=== PATIENT | male | born 1940 | race African-American/Black ===

== ENCOUNTER 2021-03-18 13:52 | Inpatient (IN) ==
[2021-03-18] MEDS ORDERED: SODIUM CHLORIDE 0.9% 1,000 ML IV STA (15:31)
[2021-03-18 15:57] LABS: Bilirubin,Urine Negative (Negative); Blood, Urine Negative (Negative); Glucose,Urine (UA) Negative (Negative); Ketones,Urine Negative (Negative); Mucus,Urine Occasional /LPF (Occasional); Nitrite,Urine Negative (Negative); Protein,Urine Negative; RBC,Urine 2 /HPF (0-4); Urine Appearance CLEAR (Clear); Urine Color Yellow (Yellow); Urine Specific Gravity 1.016 (1.001-1.035); Urine Urobilinogen < 2.0 EU/DL (0.2-1.0)
[2021-03-18 16:00] LABS: Barbiturates Screen,Urine Negative (Negative); Benzodiazepines Screen,Urine Negative (Negative); Cannabinoid Screen,Urine Negative (Negative); Opiate Screen,Urine Negative (Negative); Phencyclidine Screen,Urine Negative (Negative)
[2021-03-18] MEDS ORDERED: DEXTROSE 50% 25 GM/50 ML VIAL IV PRN (17:11)
[2021-03-18] MEDS ORDERED: hydrALAZINE 20 MG/1 ML VIAL IV PRN (17:11)
[2021-03-18] MEDS ORDERED: ACETAMINOPHEN 325 MG TABLET PO PRN (17:11)
[2021-03-18] MEDS ORDERED: BISACODYL 5 MG TABLET PO PRN (17:11)
[2021-03-18] MEDS ORDERED: DOCUSATE SODIUM 100 MG CAPSULE PO PRN (17:11)
[2021-03-18] MEDS ORDERED: ONDANSETRON 4 MG/2 ML VIAL IV PRN (17:11)
[2021-03-18] MEDS ORDERED: GLUCAGON 1 MG VIAL IM PRN (17:11)
[2021-03-18 17:29] LABS: Alanine Aminotransferase 20 U/L (16-61); Albumin 3.6 G/DL (3.4-5.0); Alkaline Phosphatase 133 U/L (45-117); Aspartate Amino Transferase 19 U/L (0-37); Blood Urea Nitrogen 22 MG/DL (7-18); Calcium 9.3 MG/DL (8.5-10.1); Carbon Dioxide 18 MMOL/L (21-32); Estimated Glom Filtration Rate 66 ML/MIN; Glucose 71 MG/DL (74-106); Osmolality,Calculated 273.8 MOS/KG (273-304); Potassium 4.8 MMOL/L (3.5-5.1); Sodium 137 MMOL/L (136-145); Total Protein 7.7 G/DL (6.4-8.2)
[2021-03-18 17:40] LABS: Basophils # 0.1 10*3/uL (0.0-0.2); Basophils % 0.7 % (0.0-0.8); Eosinophils # 0.2 10*3/uL (0.0-0.87); Eosinophils % 2.9 % (0.00-10.9); Hematocrit 36.8 VOL% (42.0-52.0); Hemoglobin 11.4 GM/DL (14.0-18.0); Immature Granulocytes % 0.5 %; Immature Granulocytes Absolute 0.04 #; Lymphocytes # 2.5 10*3/uL (1.4-4.0); Lymphocytes % 30.6 % (21.2-54.2); Mean Corpuscular Volume 82.9 FL (87-102); Mean Platelet Volume 11.4 FL (9.6-12.0); Monocytes % 7.1 % (1.7-12.7); Neutrophils % 58.2 % (38.7-73.9); Platelet Count 376 T/CUMM (130-400); Red Blood Count 4.44 MC/CUMM (3.8-5.5); Red Cell Distribution Width 17.5 % (9.3-17.3); White Blood Count 8.2 T/CUMM (4-12)
[2021-03-18] MEDS ORDERED: ASPIRIN EC 325 MG TABLET PO STA (18:07)
[2021-03-18] MEDS: SODIUM CHLORIDE 0.9% 1,000 ML IV SCH (18:08)
[2021-03-18 18:20] LABS: Eosinophils 2 % (0-10); Lymphocytes 36 % (20-55); Segmented Neutrophils 57 % (50-85); Total Cells Counted 100
[2021-03-18 18:22] LABS: Hypochromasia 1+; Microcytosis 1+; Ovalocytes Few
[2021-03-18 18:23] LABS: Platelet Estimate Increased
[2021-03-18 19:40] LABS: PT Patient Result 11.4 SECS (10.5-12.0)
[2021-03-18] MEDS ORDERED: AZITHROMYCIN INJ 500 MG in SODIUM CHLORIDE 0.9% 250 ML IV SCH (20:00)
[2021-03-18] MEDS: ATORVASTATIN 40 MG TABLET PO SCH (20:25)
[2021-03-18] MEDS: levETIRAcetam 250 MG TABLET PO SCH (20:25)
[2021-03-18] MEDS: ASCORBIC ACID 500 MG TABLET PO SCH (20:25)
[2021-03-18] MEDS ORDERED: ENOXAPARIN 40 MG/0.4 ML SYRINGE SUBCUT SCH (21:00)
[2021-03-19] MEDS: SODIUM CHLORIDE 0.9% 1,000 ML IV SCH ×2 (06:30→16:41)
[2021-03-19] MEDS: LEVOTHYROXINE 50 MCG TABLET PO SCH (06:33)
[2021-03-19 06:49] LABS: Albumin 2.9 G/DL (3.4-5.0); Bilirubin,Total 1.4 MG/DL (0.20-1.00); Calcium 8.4 MG/DL (8.5-10.1); Osmolality,Calculated 283.1 MOS/KG (273-304); Potassium 4.2 MMOL/L (3.5-5.1); Total Protein 6.1 G/DL (6.4-8.2)
[2021-03-19 06:53] LABS: Risk Ratio 3.85; VLDL Cholesterol 12.2 MG/DL
[2021-03-19 06:56] LABS: Ferritin 307.3 ng/ml (26-388)
[2021-03-19] MEDS: levETIRAcetam 250 MG TABLET PO SCH ×2 (08:19→20:21)
[2021-03-19] MEDS: ZINC GLUCONATE 50 MG TABLET PO SCH (08:19)
[2021-03-19] MEDS: PANTOPRAZOLE 40 MG TABLET PO SCH (08:19)
[2021-03-19] MEDS: amLODIPine 10 MG TABLET PO SCH (08:19)
[2021-03-19] MEDS: lisinopriL 10 MG TABLET PO SCH (08:19)
[2021-03-19] MEDS: CHOLECALCIFEROL 1,000 UNIT TABLET PO SCH (08:19)
[2021-03-19] MEDS: ASCORBIC ACID 500 MG TABLET PO SCH ×2 (08:19→20:21)
[2021-03-19] MEDS: ASPIRIN EC 81 MG TABLET PO SCH (08:22)
[2021-03-19] MEDS ORDERED: DEXAMETHASONE 4 MG/1 ML VIAL IV SCH (09:00)
[2021-03-19] MEDS ORDERED: RIVAROXABAN 10 MG TABLET PO SCH (09:00)
[2021-03-19] MEDS ORDERED: ASPIRIN EC 325 MG TABLET PO SCH (09:00)
[2021-03-19] MEDS ORDERED: methylPREDNISolone SOD SUC 125 MG/2 ML VIAL IV PRN (11:30)
[2021-03-19] MEDS ORDERED: MECLIZINE 25 MG TABLET PO PRN (11:30)
[2021-03-19] MEDS ORDERED: diphenhydrAMINE 50 MG/1 ML VIAL IV PRN ×2 (11:30)
[2021-03-19] MEDS ORDERED: ONDANSETRON 4 MG/2 ML VIAL IV PRN (11:30)
[2021-03-19] MEDS ORDERED: SODIUM CHLORIDE 0.9% 200 ML IV SCH (11:30)
[2021-03-19] MEDS ORDERED: ACETAMINOPHEN 325 MG TABLET PO PRN (11:30)
[2021-03-19] MEDS ORDERED: DEXAMETHASONE 4 MG TABLET PO ONE (11:30)
[2021-03-19] MEDS ORDERED: SODIUM CHLORIDE 0.9% 1,000 ML IV SCH (11:30)
[2021-03-19] MEDS ORDERED: [UNRECOGNIZED DRUG - OTHER] IV ONE (14:00)
[2021-03-19] MEDS ORDERED: ZIPRASIDONE 20 MG/1 ML VIAL IM ONE (15:53)
[2021-03-19] MEDS ORDERED: ZIPRASIDONE 20 MG/1 ML VIAL IM PRN (16:02)
[2021-03-19] MEDS: ATORVASTATIN 40 MG TABLET PO SCH (20:22)
[2021-03-19] MEDS: APIXABAN 2.5 MG TABLET PO SCH (20:22)
[2021-03-20] MEDS ORDERED: chlordiazePOXIDE 10 MG CAPSULE PO PRN (01:47)
[2021-03-20] MEDS: SODIUM CHLORIDE 0.9% 1,000 ML IV SCH ×3 (01:52→23:19)
[2021-03-20] MEDS: LORazepam 2 MG/1 ML VIAL IV PRN ×5 (03:52→23:19)
[2021-03-20 05:35] LABS: Basophils % 0.2 % (0.0-0.8); Eosinophils % 0.1 % (0.00-10.9); Hematocrit 40.4 VOL% (42.0-52.0); Hemoglobin 12.4 GM/DL (14.0-18.0); Immature Granulocytes % 0.5 %; Immature Granulocytes Absolute 0.06 #; Lymphocytes # 1.4 10*3/uL (1.4-4.0); Mean Corpuscular HGB Conc 30.7 GM/DL (32-36); Mean Corpuscular Volume 83.8 FL (87-102); Mean Platelet Volume 11.6 FL (9.6-12.0); Monocytes % 6.6 % (1.7-12.7); Neutrophils % 79.6 % (38.7-73.9); Platelet Count 359 T/CUMM (130-400); Red Blood Count 4.82 MC/CUMM (3.8-5.5); Red Cell Distribution Width 17.1 % (9.3-17.3)
[2021-03-20 05:42] LABS: White Blood Count 10.9 T/CUMM (4-12)
[2021-03-20 05:45] LABS: Calcium 8.9 MG/DL (8.5-10.1); Osmolality,Calculated 280.3 MOS/KG (273-304)
[2021-03-20] MEDS: LEVOTHYROXINE 50 MCG TABLET PO SCH ×2 (05:53→06:04)
[2021-03-20 05:56] LABS: Hypochromasia 1+; Microcytosis 1+; Ovalocytes Slight; Platelet Estimate Normal
[2021-03-20] MEDS: levETIRAcetam 250 MG TABLET PO SCH ×2 (08:57→23:20)
[2021-03-20] MEDS: ZINC GLUCONATE 50 MG TABLET PO SCH (08:58)
[2021-03-20] MEDS: ASPIRIN EC 81 MG TABLET PO SCH (08:58)
[2021-03-20] MEDS: CHOLECALCIFEROL 1,000 UNIT TABLET PO SCH (08:58)
[2021-03-20] MEDS: APIXABAN 2.5 MG TABLET PO SCH ×2 (08:58→23:20)
[2021-03-20] MEDS: ASCORBIC ACID 500 MG TABLET PO SCH ×2 (08:58→23:20)
[2021-03-20] MEDS: PANTOPRAZOLE 40 MG TABLET PO SCH (08:58)
[2021-03-20] MEDS: amLODIPine 10 MG TABLET PO SCH (08:58)
[2021-03-20] MEDS: lisinopriL 10 MG TABLET PO SCH (08:58)
[2021-03-20] MEDS ORDERED: OLANZapine 10 MG VIAL IM PRN ×2 (10:10→10:30)
[2021-03-20] MEDS ORDERED: LORazepam 2 MG/1 ML VIAL ONE (18:12)
[2021-03-20] MEDS ORDERED: LORazepam 2 MG/1 ML VIAL IV ONE (19:40)
[2021-03-20 19:54] LABS: ABG Base Excess -4.4 MMOL/L (-2.5-2.5); ABG HCO3 20.8 MMOL/L (20-26); ABG Oxygen Saturation 99.5 % (95-100); ABG PCO2 30.3 MM HG (35-48); ABG PH 7.409 (7.35-7.45); ABG TCO2 16.7 MMOL/L (23-27)
[2021-03-20] MEDS ORDERED: HALOPERIDOL 5 MG/ML AMP IM ONE (20:14)
[2021-03-20] MEDS: ATROPINE 1 % OPH SOLN 5 ML BOTTLE SL PRN (20:41)
[2021-03-20] MEDS: THIAMINE INJ 100 MG, FOLIC ACID INJ 1 MG, MULTIVITAMIN INJ 10 ML in SODIUM CHLORIDE 0.9... IV SCH (20:42)
[2021-03-20] MEDS: ATORVASTATIN 40 MG TABLET PO SCH (23:20)
[2021-03-21] MEDS: LEVOTHYROXINE 50 MCG TABLET PO SCH (05:59)
[2021-03-21] MEDS: LORazepam 2 MG/1 ML VIAL IV PRN ×4 (06:28→21:55)
[2021-03-21] MEDS: SODIUM CHLORIDE 0.9% 1,000 ML IV SCH ×2 (06:47→19:42)
[2021-03-21] MEDS: ASPIRIN EC 81 MG TABLET PO SCH (10:13)
[2021-03-21] MEDS: APIXABAN 2.5 MG TABLET PO SCH ×2 (10:13→20:35)
[2021-03-21] MEDS: amLODIPine 10 MG TABLET PO SCH (10:13)
[2021-03-21] MEDS: levETIRAcetam 250 MG TABLET PO SCH ×2 (10:13→20:35)
[2021-03-21] MEDS: ZINC GLUCONATE 50 MG TABLET PO SCH (10:14)
[2021-03-21] MEDS: ASCORBIC ACID 500 MG TABLET PO SCH ×2 (10:14→20:35)
[2021-03-21] MEDS: PANTOPRAZOLE 40 MG TABLET PO SCH (10:14)
[2021-03-21] MEDS: lisinopriL 10 MG TABLET PO SCH (10:14)
[2021-03-21] MEDS: CHOLECALCIFEROL 1,000 UNIT TABLET PO SCH (10:14)
[2021-03-21 13:26] LABS: Basophils # 0.1 10*3/uL (0.0-0.2); Basophils % 0.4 % (0.0-0.8); Eosinophils # 0.1 10*3/uL (0.0-0.87); Eosinophils % 0.7 % (0.00-10.9); Hematocrit 47.6 VOL% (42.0-52.0); Hemoglobin 14.6 GM/DL (14.0-18.0); Immature Granulocytes % 0.4 %; Immature Granulocytes Absolute 0.06 #; Lymphocytes # 1.4 10*3/uL (1.4-4.0); Mean Corpuscular HGB Conc 30.7 GM/DL (32-36); Mean Platelet Volume 11.4 FL (9.6-12.0); Neutrophils % 81.5 % (38.7-73.9); Platelet Count 220 T/CUMM (130-400); Red Blood Count 5.67 MC/CUMM (3.8-5.5); Red Cell Distribution Width 17.7 % (9.3-17.3); White Blood Count 14.1 T/CUMM (4-12)
[2021-03-21 13:37] LABS: Calcium 9.2 MG/DL (8.5-10.1); Osmolality,Calculated 265.2 MOS/KG (273-304); Potassium 4.8 MMOL/L (3.5-5.1)
[2021-03-21] MEDS: ATROPINE 1 % OPH SOLN 5 ML BOTTLE SL PRN (14:31)
[2021-03-21] MEDS: THIAMINE INJ 100 MG, FOLIC ACID INJ 1 MG, MULTIVITAMIN INJ 10 ML in SODIUM CHLORIDE 0.9... IV SCH (20:34)
[2021-03-21] MEDS: ATORVASTATIN 40 MG TABLET PO SCH (20:35)
[2021-03-22] MEDS: LORazepam 2 MG/1 ML VIAL IV PRN ×2 (03:52→21:25)
[2021-03-22] MEDS: SODIUM CHLORIDE 0.9% 1,000 ML IV SCH ×2 (04:00→18:19)
[2021-03-22] MEDS: LEVOTHYROXINE 50 MCG TABLET PO SCH (05:50)
[2021-03-22 06:36] LABS: Calcium 8.5 MG/DL (8.5-10.1); Osmolality,Calculated 276.4 MOS/KG (273-304)
[2021-03-22 07:42] LABS: Basophils # 0.1 10*3/uL (0.0-0.2); Basophils % 0.5 % (0.0-0.8); Eosinophils # 0.2 10*3/uL (0.0-0.87); Eosinophils % 1.3 % (0.00-10.9); Hematocrit 46.6 VOL% (42.0-52.0); Hemoglobin 14.2 GM/DL (14.0-18.0); Immature Granulocytes % 0.5 %; Immature Granulocytes Absolute 0.07 #; Lymphocytes % 15.8 % (21.2-54.2); Mean Corpuscular HGB Conc 30.5 GM/DL (32-36); Mean Corpuscular Volume 85.7 FL (87-102); Mean Platelet Volume 11.4 FL (9.6-12.0); Monocytes % 9.4 % (1.7-12.7); Neutrophils % 72.5 % (38.7-73.9); Platelet Count 190 T/CUMM (130-400); Red Blood Count 5.44 MC/CUMM (3.8-5.5); Red Cell Distribution Width 17.8 % (9.3-17.3); White Blood Count 12.8 T/CUMM (4-12)
[2021-03-22 07:48] LABS: Platelet Estimate Adequate
[2021-03-22 07:49] LABS: Hypochromasia 1+; Microcytosis 1+
[2021-03-22] MEDS: APIXABAN 2.5 MG TABLET PO SCH ×2 (08:26→20:20)
[2021-03-22] MEDS: ASPIRIN EC 81 MG TABLET PO SCH (08:26)
[2021-03-22] MEDS: ASCORBIC ACID 500 MG TABLET PO SCH ×2 (08:27→20:20)
[2021-03-22] MEDS: ZINC GLUCONATE 50 MG TABLET PO SCH (08:27)
[2021-03-22] MEDS: levETIRAcetam 250 MG TABLET PO SCH (08:27)
[2021-03-22] MEDS: PANTOPRAZOLE 40 MG TABLET PO SCH (08:27)
[2021-03-22] MEDS: CHOLECALCIFEROL 1,000 UNIT TABLET PO SCH (08:27)
[2021-03-22] MEDS: lisinopriL 10 MG TABLET PO SCH (08:27)
[2021-03-22] MEDS: amLODIPine 10 MG TABLET PO SCH (08:27)
[2021-03-22] MEDS: NICOTINE 21 MG/24 HR PATCH TRANSDERM PRN (18:19)
[2021-03-22] MEDS: ATORVASTATIN 40 MG TABLET PO SCH (20:20)
[2021-03-22] MEDS: THIAMINE INJ 100 MG, FOLIC ACID INJ 1 MG, MULTIVITAMIN INJ 10 ML in SODIUM CHLORIDE 0.9... IV SCH (20:20)
[2021-03-23 05:59] LABS: Basophils # 0.1 10*3/uL (0.0-0.2); Basophils % 0.5 % (0.0-0.8); Eosinophils # 0.2 10*3/uL (0.0-0.87); Eosinophils % 1.7 % (0.00-10.9); Hemoglobin 13.5 GM/DL (14.0-18.0); Immature Granulocytes % 0.5 %; Immature Granulocytes Absolute 0.06 #; Lymphocytes # 1.9 10*3/uL (1.4-4.0); Lymphocytes % 15.2 % (21.2-54.2); Mean Corpuscular HGB Conc 32.1 GM/DL (32-36); Mean Corpuscular Volume 81.6 FL (87-102); Mean Platelet Volume 11.2 FL (9.6-12.0); Monocytes % 9.1 % (1.7-12.7); Platelet Count 275 T/CUMM (130-400); Red Blood Count 5.15 MC/CUMM (3.8-5.5); Red Cell Distribution Width 16.9 % (9.3-17.3); White Blood Count 12.2 T/CUMM (4-12)
[2021-03-23 06:17] LABS: Calcium 8.5 MG/DL (8.5-10.1); Osmolality,Calculated 276.4 MOS/KG (273-304); Potassium 3.8 MMOL/L (3.5-5.1)
[2021-03-23] MEDS: SODIUM CHLORIDE 0.9% 1,000 ML IV SCH ×2 (06:27→18:52)
[2021-03-23] MEDS: LEVOTHYROXINE 50 MCG TABLET PO SCH (06:32)
[2021-03-23] MEDS: ASCORBIC ACID 500 MG TABLET PO SCH ×2 (08:31→20:05)
[2021-03-23] MEDS: CHOLECALCIFEROL 1,000 UNIT TABLET PO SCH (08:31)
[2021-03-23] MEDS: amLODIPine 10 MG TABLET PO SCH (08:31)
[2021-03-23] MEDS: ZINC GLUCONATE 50 MG TABLET PO SCH (08:31)
[2021-03-23] MEDS: ASPIRIN EC 81 MG TABLET PO SCH (08:31)
[2021-03-23] MEDS: PANTOPRAZOLE 40 MG TABLET PO SCH (08:32)
[2021-03-23] MEDS: APIXABAN 2.5 MG TABLET PO SCH ×2 (08:32→20:05)
[2021-03-23] MEDS: lisinopriL 10 MG TABLET PO SCH (08:32)
[2021-03-23] MEDS: ATORVASTATIN 40 MG TABLET PO SCH (20:05)
[2021-03-23] MEDS: LORazepam 2 MG/1 ML VIAL IV PRN ×2 (20:17→22:23)
[2021-03-23] MEDS: THIAMINE INJ 100 MG, FOLIC ACID INJ 1 MG, MULTIVITAMIN INJ 10 ML in SODIUM CHLORIDE 0.9... IV SCH (21:13)
[2021-03-24] MEDS: LORazepam 2 MG/1 ML VIAL IV PRN ×2 (05:03→12:18)
[2021-03-24] MEDS: LEVOTHYROXINE 50 MCG TABLET PO SCH (05:54)
[2021-03-24] MEDS: SODIUM CHLORIDE 0.9% 1,000 ML IV SCH (05:57)
[2021-03-24] MEDS: ZINC GLUCONATE 50 MG TABLET PO SCH ×2 (08:02→08:33)
[2021-03-24] MEDS: PANTOPRAZOLE 40 MG TABLET PO SCH ×2 (08:02→08:33)
[2021-03-24] MEDS: amLODIPine 10 MG TABLET PO SCH ×2 (08:02→08:33)
[2021-03-24] MEDS: APIXABAN 2.5 MG TABLET PO SCH ×3 (08:02→21:51)
[2021-03-24] MEDS: CHOLECALCIFEROL 1,000 UNIT TABLET PO SCH ×2 (08:02→08:33)
[2021-03-24] MEDS: lisinopriL 10 MG TABLET PO SCH ×2 (08:02→08:33)
[2021-03-24] MEDS: ASCORBIC ACID 500 MG TABLET PO SCH ×3 (08:02→21:52)
[2021-03-24] MEDS: ASPIRIN EC 81 MG TABLET PO SCH ×2 (08:02→08:33)
[2021-03-24 08:13] LABS: Basophils # 0.1 10*3/uL (0.0-0.2); Basophils % 0.3 % (0.0-0.8); Eosinophils # 0.2 10*3/uL (0.0-0.87); Hematocrit 38.9 VOL% (42.0-52.0); Immature Granulocytes % 0.6 %; Immature Granulocytes Absolute 0.09 #; Lymphocytes % 12.7 % (21.2-54.2); Mean Corpuscular HGB Conc 30.8 GM/DL (32-36); Mean Corpuscular Volume 82.6 FL (87-102); Mean Platelet Volume 11.9 FL (9.6-12.0); Monocytes % 10.5 % (1.7-12.7); Neutrophils % 74.9 % (38.7-73.9); Platelet Count 319 T/CUMM (130-400); Red Blood Count 4.71 MC/CUMM (3.8-5.5); Red Cell Distribution Width 16.7 % (9.3-17.3); White Blood Count 15.7 T/CUMM (4-12)
[2021-03-24 08:26] LABS: Calcium 8.6 MG/DL (8.5-10.1); Osmolality,Calculated 274.5 MOS/KG (273-304); Potassium 3.6 MMOL/L (3.5-5.1)
[2021-03-24] MEDS ORDERED: LORazepam 2 MG/1 ML VIAL ONE (12:14)
[2021-03-24] MEDS: DEXTROSE 5% NACL 0.9% 1,000 ML IV SCH (15:04)
[2021-03-24] MEDS: THIAMINE INJ 100 MG, FOLIC ACID INJ 1 MG, MULTIVITAMIN INJ 10 ML in SODIUM CHLORIDE 0.9... IV SCH (21:15)
[2021-03-24] MEDS: ATORVASTATIN 40 MG TABLET PO SCH (21:52)
[2021-03-25 05:03] LABS: Basophils # 0.1 10*3/uL (0.0-0.2); Basophils % 0.3 % (0.0-0.8); Eosinophils # 0.1 10*3/uL (0.0-0.87); Eosinophils % 0.5 % (0.00-10.9); Hematocrit 35.4 VOL% (42.0-52.0); Hemoglobin 11.6 GM/DL (14.0-18.0); Immature Granulocytes % 0.6 %; Immature Granulocytes Absolute 0.09 #; Lymphocytes # 1.2 10*3/uL (1.4-4.0); Lymphocytes % 8.1 % (21.2-54.2); Mean Corpuscular HGB Conc 32.8 GM/DL (32-36); Mean Corpuscular Volume 79.6 FL (87-102); Mean Platelet Volume 11.6 FL (9.6-12.0); Monocytes % 12.1 % (1.7-12.7); Neutrophils % 78.4 % (38.7-73.9); Platelet Count 322 T/CUMM (130-400); Red Blood Count 4.45 MC/CUMM (3.8-5.5); Red Cell Distribution Width 16.3 % (9.3-17.3); White Blood Count 15.1 T/CUMM (4-12)
[2021-03-25 05:24] LABS: Hypochromasia Slight; Microcytosis Slight; Platelet Estimate Adequate
[2021-03-25] MEDS: LEVOTHYROXINE 50 MCG TABLET PO SCH (05:49)
[2021-03-25] MEDS: DEXTROSE 5% NACL 0.9% 1,000 ML IV SCH ×2 (05:50→16:48)
[2021-03-25] MEDS: APIXABAN 2.5 MG TABLET PO SCH ×2 (10:02→20:49)
[2021-03-25] MEDS: ASPIRIN EC 81 MG TABLET PO SCH (10:02)
[2021-03-25] MEDS: CHOLECALCIFEROL 1,000 UNIT TABLET PO SCH (10:03)
[2021-03-25] MEDS: amLODIPine 10 MG TABLET PO SCH (10:03)
[2021-03-25] MEDS: lisinopriL 10 MG TABLET PO SCH (10:03)
[2021-03-25] MEDS: ZINC GLUCONATE 50 MG TABLET PO SCH (10:03)
[2021-03-25] MEDS: PANTOPRAZOLE 40 MG TABLET PO SCH (10:03)
[2021-03-25] MEDS: ASCORBIC ACID 500 MG TABLET PO SCH ×2 (10:03→20:48)
[2021-03-25] MEDS: RIVASTIGMINE 4.6 MG/24 HR PATCH TRANSDERM SCH (10:13)
[2021-03-25] MEDS: HALOPERIDOL 5 MG/ML AMP IM PRN (13:49)
[2021-03-25] MEDS: ATORVASTATIN 40 MG TABLET PO SCH (20:48)
[2021-03-25] MEDS: THIAMINE INJ 100 MG, FOLIC ACID INJ 1 MG, MULTIVITAMIN INJ 10 ML in SODIUM CHLORIDE 0.9... IV SCH (20:49)
[2021-03-26] MEDS: HALOPERIDOL 5 MG/ML AMP IM PRN ×2 (00:19→14:55)
[2021-03-26] MEDS: LEVOTHYROXINE 50 MCG TABLET PO SCH (05:41)
[2021-03-26] MEDS: DEXTROSE 5% NACL 0.9% 1,000 ML IV SCH ×2 (06:11→15:36)
[2021-03-26] MEDS: amLODIPine 10 MG TABLET PO SCH (08:33)
[2021-03-26] MEDS: APIXABAN 2.5 MG TABLET PO SCH ×2 (08:33→21:22)
[2021-03-26] MEDS: ASPIRIN EC 81 MG TABLET PO SCH (08:33)
[2021-03-26] MEDS: lisinopriL 10 MG TABLET PO SCH ×2 (08:33→21:23)
[2021-03-26] MEDS: RIVASTIGMINE 4.6 MG/24 HR PATCH TRANSDERM SCH (08:35)
[2021-03-26] MEDS: PANTOPRAZOLE 40 MG TABLET PO SCH (08:35)
[2021-03-26] MEDS: ZINC GLUCONATE 50 MG TABLET PO SCH (08:35)
[2021-03-26] MEDS: ASCORBIC ACID 500 MG TABLET PO SCH ×2 (08:35→21:22)
[2021-03-26] MEDS: CHOLECALCIFEROL 1,000 UNIT TABLET PO SCH (08:35)
[2021-03-26] MEDS ORDERED: QUEtiapine 25 MG TABLET PO SCH (21:00)
[2021-03-26] MEDS: QUEtiapine 25 MG TABLET PO SCH (21:24)
[2021-03-26] MEDS: ATORVASTATIN 40 MG TABLET PO SCH (21:24)
[2021-03-26] MEDS: MEMANTINE 5 MG TABLET PO SCH (21:24)
[2021-03-26] MEDS: THIAMINE INJ 100 MG, FOLIC ACID INJ 1 MG, MULTIVITAMIN INJ 10 ML in SODIUM CHLORIDE 0.9... IV SCH (21:25)
[2021-03-27 06:30] LABS: Basophils % 0.3 % (0.0-0.8); Eosinophils # 0.1 10*3/uL (0.0-0.87); Hematocrit 35.9 VOL% (42.0-52.0); Hemoglobin 11.5 GM/DL (14.0-18.0); Immature Granulocytes % 0.8 %; Immature Granulocytes Absolute 0.09 #; Lymphocytes # 1.4 10*3/uL (1.4-4.0); Lymphocytes % 11.7 % (21.2-54.2); Monocytes % 14.2 % (1.7-12.7); Platelet Count 334 T/CUMM (130-400); Red Blood Count 4.49 MC/CUMM (3.8-5.5); Red Cell Distribution Width 16.2 % (9.3-17.3); White Blood Count 11.7 T/CUMM (4-12)
[2021-03-27] MEDS: LEVOTHYROXINE 50 MCG TABLET PO SCH (06:39)
[2021-03-27 06:50] LABS: Calcium 8.3 MG/DL (8.5-10.1); Osmolality,Calculated 275.5 MOS/KG (273-304)
[2021-03-27] MEDS: PANTOPRAZOLE 40 MG TABLET PO SCH (09:00)
[2021-03-27] MEDS: lisinopriL 10 MG TABLET PO SCH ×2 (09:00→20:17)
[2021-03-27] MEDS: MEMANTINE 5 MG TABLET PO SCH ×2 (09:00→20:17)
[2021-03-27] MEDS: CHOLECALCIFEROL 1,000 UNIT TABLET PO SCH (09:00)
[2021-03-27] MEDS: RIVASTIGMINE 4.6 MG/24 HR PATCH TRANSDERM SCH (09:00)
[2021-03-27] MEDS: amLODIPine 10 MG TABLET PO SCH (09:00)
[2021-03-27] MEDS: ASCORBIC ACID 500 MG TABLET PO SCH ×2 (09:01→20:17)
[2021-03-27] MEDS: ASPIRIN EC 81 MG TABLET PO SCH (09:01)
[2021-03-27] MEDS: APIXABAN 2.5 MG TABLET PO SCH ×2 (09:01→20:17)
[2021-03-27] MEDS: ZINC GLUCONATE 50 MG TABLET PO SCH (09:01)
[2021-03-27] MEDS: DEXTROSE 5% NACL 0.9% 1,000 ML IV SCH ×3 (09:03→23:38)
[2021-03-27] MEDS ORDERED: MAGNESIUM SULF RIDER 2 GM/50 ML PREMIX IV PRN (12:02)
[2021-03-27] MEDS ORDERED: MAGNESIUM SULF RIDER 4 GM/100 ML PREMIX IV PRN (12:02)
[2021-03-27] MEDS ORDERED: POTASSIUM BICARB EFFERVESCENT 20 MEQ TAB.EFF PO PRN (12:05)
[2021-03-27 12:14] LABS: Ovalocytes Slight; Platelet Estimate Normal; Polychromasia Slight; Target Cells Slight
[2021-03-27] MEDS: POTASSIUM CHLORIDE 20 MEQ TABLET PO PRN ×4 (12:15→17:32)
[2021-03-27] MEDS: QUEtiapine 25 MG TABLET PO SCH (20:17)
[2021-03-27] MEDS: ATORVASTATIN 40 MG TABLET PO SCH (20:17)
[2021-03-27] MEDS: THIAMINE INJ 100 MG, FOLIC ACID INJ 1 MG, MULTIVITAMIN INJ 10 ML in SODIUM CHLORIDE 0.9... IV SCH (20:50)
[2021-03-28] MEDS ORDERED: DILTIAZEM 50 MG/10 ML VIAL IV ONE (00:44)
[2021-03-28] MEDS: POTASSIUM CHLORIDE 20 MEQ TABLET PO PRN ×4 (01:15→10:34)
[2021-03-28] MEDS: HALOPERIDOL 5 MG/ML AMP IM PRN (02:04)
[2021-03-28] MEDS: LEVOTHYROXINE 50 MCG TABLET PO SCH (06:05)
[2021-03-28 06:30] LABS: Calcium 8.5 MG/DL (8.5-10.1); Osmolality,Calculated 272.8 MOS/KG (273-304)
[2021-03-28] MEDS: PANTOPRAZOLE 40 MG TABLET PO SCH (08:00)
[2021-03-28] MEDS: MEMANTINE 5 MG TABLET PO SCH ×2 (08:00→21:18)
[2021-03-28] MEDS: ZINC GLUCONATE 50 MG TABLET PO SCH (08:00)
[2021-03-28] MEDS: ASCORBIC ACID 500 MG TABLET PO SCH ×2 (08:00→21:18)
[2021-03-28] MEDS: amLODIPine 10 MG TABLET PO SCH (08:00)
[2021-03-28] MEDS: lisinopriL 10 MG TABLET PO SCH ×2 (08:00→21:18)
[2021-03-28] MEDS: RIVASTIGMINE 4.6 MG/24 HR PATCH TRANSDERM SCH (08:00)
[2021-03-28] MEDS: ASPIRIN EC 81 MG TABLET PO SCH (08:01)
[2021-03-28] MEDS: APIXABAN 2.5 MG TABLET PO SCH ×2 (08:01→21:18)
[2021-03-28] MEDS: CHOLECALCIFEROL 1,000 UNIT TABLET PO SCH (08:01)
[2021-03-28] MEDS: DEXTROSE 5% NACL 0.9% 1,000 ML IV SCH (14:36)
[2021-03-28] MEDS: NICOTINE 21 MG/24 HR PATCH TRANSDERM PRN (17:58)
[2021-03-28] MEDS: ATORVASTATIN 40 MG TABLET PO SCH (21:18)
[2021-03-28] MEDS: THIAMINE INJ 100 MG, FOLIC ACID INJ 1 MG, MULTIVITAMIN INJ 10 ML in SODIUM CHLORIDE 0.9... IV SCH (21:18)
[2021-03-28] MEDS: QUEtiapine 25 MG TABLET PO SCH (21:18)
[2021-03-29] MEDS: LEVOTHYROXINE 50 MCG TABLET PO SCH (05:38)
[2021-03-29] MEDS: ASCORBIC ACID 500 MG TABLET PO SCH ×2 (09:59→20:57)
[2021-03-29] MEDS: ASPIRIN EC 81 MG TABLET PO SCH (10:00)
[2021-03-29] MEDS: CHOLECALCIFEROL 1,000 UNIT TABLET PO SCH (10:00)
[2021-03-29] MEDS: PANTOPRAZOLE 40 MG TABLET PO SCH (10:00)
[2021-03-29] MEDS: MEMANTINE 5 MG TABLET PO SCH ×2 (10:00→20:57)
[2021-03-29] MEDS: ZINC GLUCONATE 50 MG TABLET PO SCH (10:00)
[2021-03-29] MEDS: RIVASTIGMINE 4.6 MG/24 HR PATCH TRANSDERM SCH (10:00)
[2021-03-29] MEDS: lisinopriL 10 MG TABLET PO SCH ×2 (10:00→20:56)
[2021-03-29] MEDS: APIXABAN 2.5 MG TABLET PO SCH ×2 (10:00→20:57)
[2021-03-29] MEDS: MULTIVITAMIN LIQUID (CENTRUM) 60 ML BOTTLE PO SCH (10:01)
[2021-03-29] MEDS: FOLIC ACID 1 MG TABLET PO SCH (10:03)
[2021-03-29] MEDS: amLODIPine 10 MG TABLET PO SCH (10:03)
[2021-03-29] MEDS: THIAMINE 100 MG TABLET PO SCH (10:03)
[2021-03-29] MEDS: DEXTROSE 5% NACL 0.9% 1,000 ML IV SCH (12:23)
[2021-03-29] MEDS: POTASSIUM BICARB EFFERVESCENT 20 MEQ TAB.EFF PO PRN ×3 (13:16→18:41)
[2021-03-29] MEDS: levETIRAcetam 250 MG TABLET PO SCH ×2 (16:09→20:56)
[2021-03-29] MEDS: QUEtiapine 25 MG TABLET PO SCH (20:56)
[2021-03-29] MEDS: ATORVASTATIN 40 MG TABLET PO SCH (20:57)
[2021-03-30] MEDS: LEVOTHYROXINE 50 MCG TABLET PO SCH (06:33)
[2021-03-30] MEDS: ASPIRIN EC 81 MG TABLET PO SCH (09:47)
[2021-03-30] MEDS: levETIRAcetam 250 MG TABLET PO SCH (09:47)
[2021-03-30] MEDS: ASCORBIC ACID 500 MG TABLET PO SCH (09:47)
[2021-03-30] MEDS: MEMANTINE 5 MG TABLET PO SCH (09:47)
[2021-03-30] MEDS: CHOLECALCIFEROL 1,000 UNIT TABLET PO SCH (09:47)
[2021-03-30] MEDS: THIAMINE 100 MG TABLET PO SCH (09:47)
[2021-03-30] MEDS: amLODIPine 10 MG TABLET PO SCH (09:47)
[2021-03-30] MEDS: lisinopriL 10 MG TABLET PO SCH (09:48)
[2021-03-30] MEDS: FOLIC ACID 1 MG TABLET PO SCH (09:48)
[2021-03-30] MEDS: APIXABAN 2.5 MG TABLET PO SCH (09:48)
[2021-03-30] MEDS: PANTOPRAZOLE 40 MG TABLET PO SCH (09:48)
[2021-03-30] MEDS: RIVASTIGMINE 4.6 MG/24 HR PATCH TRANSDERM SCH (09:48)
[2021-03-30] MEDS: MULTIVITAMIN LIQUID (CENTRUM) 60 ML BOTTLE PO SCH (09:49)
[2021-03-30] MEDS: ZINC GLUCONATE 50 MG TABLET PO SCH (09:49)
[2021-03-30 11:21] VITALS: BP 108/60
== END 2021-03-30 14:00 | DRG 64 ==
LOC: EDBD → EDUNIT# → N.ED 13:52 → N.EDINP 17:12 → SUATTDRO 17:12 → N.3E 19:38 → N.EDINP 20:26 → N.CC 20:26 → N.5E 03-28 16:14
PROVIDERS: ADMIT Internal Medicine; ATTEND Internal Medicine